=== PATIENT | female | born 1930 | race Caucasian/White ===

== ENCOUNTER → 2016-11-13 | Outpatient (REF) | payer MEDICARE, BC ==
[2016-11-13 17:02] LABS: ANION GAP 9 MEQ/L (8-16); BLOOD UREA NITROGEN 23 MG/DL (7-18); CALCIUM LEVEL 9.3 MG/DL (8.8-10.2); CARBON DIOXIDE LEVEL 27 MEQ/L (21-32); CHLORIDE LEVEL 106 MEQ/L (98-107); CREATININE FOR GFR 0.81 MG/DL (0.55-1.02); GLOMERULAR FILTRATION RATE > 60.0 (>32); GLUCOSE, FASTING 95 MG/DL (83-110); MAGNESIUM LEVEL 2.2 MG/DL (1.8-2.4); POTASSIUM SERUM 3.7 MEQ/L (3.5-5.1); SODIUM LEVEL 142 MEQ/L (136-145)
[2016-11-13 17:28] LABS: MEAN CORPUSCULAR HEMOGLOBIN 30.1 pg (27.0-33.0); WHITE BLOOD COUNT 6.3 K/mm3 (4.0-10.0)
[2016-11-13 18:01] LABS: VITAMIN B12 LEVEL 1457 PG/ML (247-911)
== END ==
LOC: M SFHCPLAZ 14:08
PROVIDERS: ATTEND Family Medicine
DX: I10 Essential (primary) hypertension (principal); E83.42 Hypomagnesemia; E53.8 Deficiency of other specified B group vitamins; Z86.2 Personal history of diseases of the blood and blood-forming organs and certain disorders involving the immune mechanism

== ENCOUNTER → 2016-12-02 | Outpatient (REF) | payer MEDICARE, BC | LOC: M LAB REF 11:29 | PROVIDERS: ATTEND Family Medicine | DX: C44.702 Unspecified malignant neoplasm of skin of right lower limb, including hip (principal); C44.712 Basal cell carcinoma of skin of right lower limb, including hip; L57.0 Actinic keratosis; D04.61 Carcinoma in situ of skin of right upper limb, including shoulder ==

== ENCOUNTER → 2017-03-04 | Outpatient (REF) | payer MEDICARE, BC | LOC: M LAB REF 17:06 | PROVIDERS: ATTEND Surgery | DX: C44.712 Basal cell carcinoma of skin of right lower limb, including hip (principal) ==

== ENCOUNTER → 2017-05-08 | Outpatient (REF) | payer MEDICARE, BC ==
[2017-05-08 18:41] LABS: ANION GAP 7 MEQ/L (8-16); BLOOD UREA NITROGEN 20 MG/DL (7-18); CALCIUM LEVEL 8.7 MG/DL (8.8-10.2); CARBON DIOXIDE LEVEL 29 MEQ/L (21-32); CHLORIDE LEVEL 104 MEQ/L (98-107); CREATININE FOR GFR 0.89 MG/DL (0.55-1.02); FERRITIN 81 NG/ML (8-252); GLOMERULAR FILTRATION RATE > 60.0 (>32); GLUCOSE, FASTING 89 MG/DL (83-110); POTASSIUM SERUM 4.1 MEQ/L (3.5-5.1); SODIUM LEVEL 140 MEQ/L (136-145)
[2017-05-08 18:47] LABS: MEAN CORPUSCULAR HEMOGLOBIN 30.8 pg (27.0-33.0); MEAN CORPUSCULAR HGB CONC 33.2 g/dl (32.0-36.5); MEAN CORPUSCULAR VOLUME 92.8 fl (80.0-96.0); RED CELL DISTRIBUTION WIDTH 13.3 % (11.5-14.5); WHITE BLOOD COUNT 6.4 10^3/uL (4.0-10.0)
== END ==
LOC: M SFHCPLAZ 15:24
PROVIDERS: ATTEND Family Medicine
DX: I10 Essential (primary) hypertension (principal); Z86.39 Personal history of other endocrine, nutritional and metabolic disease
CPT/HCPCS: 36415; 69210; 80048; 82728; 85027; G0463

== ENCOUNTER → 2017-11-28 | Outpatient (REF) | payer MEDICARE, BC ==
[2017-11-28 17:11] LABS: HEMATOCRIT 37.5 % (36.0-47.0); HEMOGLOBIN 12.7 g/dl (12.0-15.5); MEAN CORPUSCULAR HEMOGLOBIN 31.1 pg (27.0-33.0); MEAN CORPUSCULAR HGB CONC 33.9 g/dl (32.0-36.5); MEAN CORPUSCULAR VOLUME 91.9 fl (80.0-96.0); PLATELET COUNT, AUTOMATED 239 10^3/uL (150-450); RED BLOOD COUNT 4.08 10^6/uL (4.00-5.40); RED CELL DISTRIBUTION WIDTH 13.2 % (11.5-14.5); WHITE BLOOD COUNT 6.3 10^3/uL (4.0-10.0)
[2017-11-28 17:47] LABS: ANION GAP 7 MEQ/L (8-16); BLOOD UREA NITROGEN 23 MG/DL (7-18); CARBON DIOXIDE LEVEL 28 MEQ/L (21-32); CHLORIDE LEVEL 107 MEQ/L (98-107); CREATININE FOR GFR 0.81 MG/DL (0.55-1.30); GLOMERULAR FILTRATION RATE > 60.0 (>32); GLUCOSE, FASTING 120 MG/DL (70-100); POTASSIUM SERUM 3.6 MEQ/L (3.5-5.1); SODIUM LEVEL 142 MEQ/L (136-145)
[2017-11-28 17:48] LABS: CALCIUM LEVEL 8.7 MG/DL (8.8-10.2); FERRITIN 96 NG/ML (8-252); IRON (FE) 48 UG/DL (50-170); MAGNESIUM LEVEL 2.1 MG/DL (1.8-2.4); PERCENT SATURATION 17.2 % (13.2-45.0); TOTAL IRON BINDING CAPACITY 279 UG/DL (250-450)
== END ==
LOC: M SFHCPLAZ 15:48
DX: I10 Essential (primary) hypertension (principal); E83.42 Hypomagnesemia; Z86.39 Personal history of other endocrine, nutritional and metabolic disease
CPT/HCPCS: 83550

== ENCOUNTER 2018-03-13 07:29 | Inpatient (IN) | payer MEDICARE, BC ==
[2018-03-13 08:08] LABS: BASO % 0.5 % (0.0-1.0); EOS % 0.2 % (0.0-3.0); HEMATOCRIT 35.3 % (36.0-47.0); HEMOGLOBIN 12.3 g/dl (12.0-15.5); IMMATURE GRANULOCYTE % 0.6 % (0-3.0); LYMPH % 11.8 % (24.0-44.0); MEAN CORPUSCULAR HEMOGLOBIN 31.5 pg (27.0-33.0); MEAN CORPUSCULAR HGB CONC 34.8 g/dl (32.0-36.5); MEAN CORPUSCULAR VOLUME 90.3 fl (80.0-96.0); MONO # 0.5 10^3/uL (0.0-0.8); MONO % 6.1 % (0.0-5.0); NEUTROPHILS # 6.5 10^3/uL (1.8-7.7); NEUTROPHILS % 80.8 % (36.0-66.0); PLATELET COUNT, AUTOMATED 296 10^3/uL (150-450); RED BLOOD COUNT 3.91 10^6/uL (4.00-5.40); RED CELL DISTRIBUTION WIDTH 13.2 % (11.5-14.5)
[2018-03-13] MEDS: ONDANSETRON 4MG/2ML VIAL (J2405) IV (08:11)
[2018-03-13] MEDS: MORPHINE 2 MG/ML 1ML SYRINGE (J2270) IV (08:11)
[2018-03-13 08:26] LABS: INR 1.02; PROTHROMBIN TIME 13.5 SECONDS (12.1-14.4)
[2018-03-13 08:27] LABS: PARTIAL THROMBOPLASTIN TIME 24.4 SECONDS (25.4-37.6)
[2018-03-13 08:43] LABS: ANION GAP 11 MEQ/L (8-16); BLOOD UREA NITROGEN 18 MG/DL (7-18); CALCIUM LEVEL 8.6 MG/DL (8.8-10.2); CARBON DIOXIDE LEVEL 24 MEQ/L (21-32); CHLORIDE LEVEL 103 MEQ/L (98-107); CPK CREATINE PHOSPHOKINASE 148 U/L (26-192); CREATININE FOR GFR 0.83 MG/DL (0.55-1.30); GLOMERULAR FILTRATION RATE > 60.0 (>32); GLUCOSE, FASTING 137 MG/DL (70-100); POTASSIUM SERUM 3.2 MEQ/L (3.5-5.1); SODIUM LEVEL 138 MEQ/L (136-145); TROPONIN I < 0.02 NG/ML (< 0.10)
[2018-03-13 08:44] LABS: CK-MB VALUE MASS 3.1 NG/ML (<3.6); MB/CK RELATIVE INDEX 2.09 (< OR =4)
[2018-03-13] MEDS: NS 1,000 ML IV ×3 (09:15→21:36)
[2018-03-13] MEDS: POTASSIUM CHLORIDE 10 MEQ SR TABLET PO (10:00)
[2018-03-13] MEDS ORDERED: ACETAMINOPHEN TAB 650MG DOSE (2X325MG) PO (11:15)
[2018-03-13] MEDS ORDERED: ONDANSETRON 4MG/2ML VIAL (J2405) IV (11:15)
[2018-03-13] MEDS ORDERED: MORPHINE 4 MG/ML 1ML VIAL/SYRINGE (J2270) IV (11:15)
[2018-03-13] MEDS: PERCOCET 5MG/325MG TAB PO (11:37)
[2018-03-13] MEDS: amLODIPine 5 MG TAB PO (15:57)
[2018-03-14 06:27] LABS: HEMATOCRIT 33.5 % (36.0-47.0); HEMOGLOBIN 11.8 g/dl (12.0-15.5); MEAN CORPUSCULAR HEMOGLOBIN 31.1 pg (27.0-33.0); MEAN CORPUSCULAR HGB CONC 35.2 g/dl (32.0-36.5); MEAN CORPUSCULAR VOLUME 88.2 fl (80.0-96.0); PLATELET COUNT, AUTOMATED 294 10^3/uL (150-450); RED CELL DISTRIBUTION WIDTH 13.1 % (11.5-14.5)
[2018-03-14 06:47] LABS: ANION GAP 11 MEQ/L (8-16); BLOOD UREA NITROGEN 10 MG/DL (7-18); CALCIUM LEVEL 7.8 MG/DL (8.8-10.2); CARBON DIOXIDE LEVEL 24 MEQ/L (21-32); CHLORIDE LEVEL 104 MEQ/L (98-107); CREATININE FOR GFR 0.47 MG/DL (0.55-1.30); GLOMERULAR FILTRATION RATE > 60.0 (>32); GLUCOSE, FASTING 121 MG/DL (70-100); POTASSIUM SERUM 3.1 MEQ/L (3.5-5.1); SODIUM LEVEL 139 MEQ/L (136-145)
[2018-03-14] MEDS ORDERED: fentaNYL 100 MCG/2 ML INJECTION (J3010) As Ordered (07:53)
[2018-03-14] MEDS ORDERED: LIDOCAINE 2% INJ 100 MG/5 ML SDV (FOR ANES.) As Ordered (07:53)
[2018-03-14] MEDS ORDERED: PROPOFOL 200 MG/20 ML VIAL As Ordered (07:53)
[2018-03-14] MEDS ORDERED: MIDAZOLAM INJ 2 MG/2 ML VIAL (J2250) As Ordered (07:54)
[2018-03-14] MEDS: POTASSIUM CHLORIDE 10 MEQ SR TABLET PO ×2 (08:00→14:51)
[2018-03-14] MEDS: amLODIPine 5 MG TAB PO (09:00)
[2018-03-14] MEDS ORDERED: amLODIPine 5 MG TAB PO (09:00)
[2018-03-14] MEDS ORDERED: ePHEDrine SULFATE 25 MG/5 ML(5MG/ML) SYRINGE As Ordered (09:03)
[2018-03-14] MEDS ORDERED: PHENYLephrine HCL 500 MCG/5 ML (100MCG/ML) SYRINGE (J2370) As Ordered ×3 (09:03→10:04)
[2018-03-14] MEDS ORDERED: PHENYLEPHRINE INJ 10MG/ML VIAL (J2370) As Ordered ×5 (09:56→10:05)
[2018-03-14] MEDS: EPINEPHrine INJ 1 MG/ML 1ML AMP XX (10:01)
[2018-03-14] MEDS ORDERED: HYDROMORPHONE HCL 0.5 MG/ 0.5 ML SYRINGE (J1170 PER 1) IV (12:00)
[2018-03-14] MEDS ORDERED: MORPHINE 4 MG/ML 1ML VIAL/SYRINGE (J2270) IV (12:00)
[2018-03-14] MEDS: LR 1,000 ML IV ×2 (12:00→14:52)
[2018-03-14] MEDS ORDERED: fentaNYL 100 MCG/2 ML INJECTION (J3010) IV (12:00)
[2018-03-14] MEDS ORDERED: ONDANSETRON 4MG/2ML VIAL (J2405) As Ordered (12:14)
[2018-03-14] MEDS ORDERED: PERCOCET 5MG/325MG TAB As Ordered (12:14)
[2018-03-14] MEDS ORDERED: FLEET ENEMA PR (12:15)
[2018-03-14] MEDS: PERCOCET 5MG/325MG TAB PO (12:15)
[2018-03-14] MEDS ORDERED: ACETAMINOPHEN TAB 650MG DOSE (2X325MG) PO (12:15)
[2018-03-14] MEDS: ONDANSETRON 4MG/2ML VIAL (J2405) IV (12:16)
[2018-03-14] MEDS: traMADol 50 MG TAB PO (21:20)
[2018-03-15] MEDS: LR 1,000 ML IV ×2 (00:45→08:52)
[2018-03-15 06:31] LABS: HEMATOCRIT 35.8 % (36.0-47.0); MEAN CORPUSCULAR HEMOGLOBIN 30.8 pg (27.0-33.0); MEAN CORPUSCULAR HGB CONC 33.5 g/dl (32.0-36.5); MEAN CORPUSCULAR VOLUME 91.8 fl (80.0-96.0); PLATELET COUNT, AUTOMATED 266 10^3/uL (150-450); RED CELL DISTRIBUTION WIDTH 13.4 % (11.5-14.5); WHITE BLOOD COUNT 10.5 10^3/uL (4.0-10.0)
[2018-03-15 06:57] LABS: ANION GAP 9 MEQ/L (8-16); BLOOD UREA NITROGEN 16 MG/DL (7-18); CALCIUM LEVEL 8.2 MG/DL (8.8-10.2); CARBON DIOXIDE LEVEL 24 MEQ/L (21-32); CHLORIDE LEVEL 104 MEQ/L (98-107); CREATININE FOR GFR 0.63 MG/DL (0.55-1.30); GLOMERULAR FILTRATION RATE > 60.0 (>32); GLUCOSE, FASTING 126 MG/DL (70-100); POTASSIUM SERUM 3.3 MEQ/L (3.5-5.1); SODIUM LEVEL 137 MEQ/L (136-145)
[2018-03-15] MEDS: amLODIPine 5 MG TAB PO (08:46)
[2018-03-15] MEDS: traMADol 50 MG TAB PO (08:47)
[2018-03-15] MEDS: SENOKOT S TAB PO ×2 (08:47→21:00)
[2018-03-15] MEDS: MOM 30ML SUSPENSION UDC PO (08:47)
[2018-03-15] MEDS: MIRALAX *UNIT DOSE* 17GM PACKET PO (08:47)
[2018-03-15] MEDS: POTASSIUM CHLORIDE 10 MEQ SR TABLET PO (08:52)
[2018-03-15] MEDS: RIVAROXABAN 10 MG TAB (XARELTO) PO (17:31)
[2018-03-16] MEDS: LR 1,000 ML IV ×2 (01:45→14:15)
[2018-03-16 08:44] LABS: HEMATOCRIT 32.2 % (36.0-47.0); MEAN CORPUSCULAR HEMOGLOBIN 31.3 pg (27.0-33.0); MEAN CORPUSCULAR HGB CONC 34.2 g/dl (32.0-36.5); MEAN CORPUSCULAR VOLUME 91.5 fl (80.0-96.0); PLATELET COUNT, AUTOMATED 265 10^3/uL (150-450); RED BLOOD COUNT 3.52 10^6/uL (4.00-5.40); RED CELL DISTRIBUTION WIDTH 13.3 % (11.5-14.5); WHITE BLOOD COUNT 9.9 10^3/uL (4.0-10.0)
[2018-03-16] MEDS: MOM 30ML SUSPENSION UDC PO (08:45)
[2018-03-16] MEDS: SENOKOT S TAB PO ×2 (08:45→20:44)
[2018-03-16] MEDS: MIRALAX *UNIT DOSE* 17GM PACKET PO (08:46)
[2018-03-16 09:25] LABS: ANION GAP 7 MEQ/L (8-16); BLOOD UREA NITROGEN 16 MG/DL (7-18); CALCIUM LEVEL 7.8 MG/DL (8.8-10.2); CARBON DIOXIDE LEVEL 27 MEQ/L (21-32); CHLORIDE LEVEL 102 MEQ/L (98-107); CREATININE FOR GFR 0.58 MG/DL (0.55-1.30); GLOMERULAR FILTRATION RATE > 60.0 (>32); GLUCOSE, FASTING 185 MG/DL (70-100); SODIUM LEVEL 136 MEQ/L (136-145)
[2018-03-16] MEDS: RIVAROXABAN 10 MG TAB (XARELTO) PO (16:59)
[2018-03-17] MEDS: MOM 30ML SUSPENSION UDC PO (09:37)
[2018-03-17] MEDS: MIRALAX *UNIT DOSE* 17GM PACKET PO (09:37)
[2018-03-17] MEDS: SENOKOT S TAB PO (09:37)
== END 2018-03-17 11:00 | DRG 470 ==
LOC: M ED 07:29 → M ED INP 11:14 → M MS5PR 13:25
PROC: 0SRR019 Replacement of Right Hip Joint, Femoral Surface with Metal Synthetic Substitute, Cemented, Open Approach (ICD-10-PCS; principal; 2018-03-14 08:35)
DX: S72.041A Displaced fracture of base of neck of right femur, initial encounter for closed fracture (principal); I10 Essential (primary) hypertension; M48.00 Spinal stenosis, site unspecified; X50.9XXA Other and unspecified overexertion or strenuous movements or postures, initial encounter; Y92.009 Unspecified place in unspecified non-institutional (private) residence as the place of occurrence of the external cause; Y99.8 Other external cause status; Z79.82 Long term (current) use of aspirin; Z79.899 Other long term (current) drug therapy

== ENCOUNTER → 2018-03-26 | Outpatient (REF) ==
[2018-03-26 17:53] LABS: HEMOGLOBIN 10.4 g/dl (12.0-15.5); MEAN CORPUSCULAR HEMOGLOBIN 30.2 pg (27.0-33.0); MEAN CORPUSCULAR HGB CONC 33.5 g/dl (32.0-36.5); MEAN CORPUSCULAR VOLUME 90.1 fl (80.0-96.0); PLATELET COUNT, AUTOMATED 580 10^3/uL (150-450); RED BLOOD COUNT 3.44 10^6/uL (4.00-5.40); RED CELL DISTRIBUTION WIDTH 13.9 % (11.5-14.5); WHITE BLOOD COUNT 14.2 10^3/uL (4.0-10.0)
[2018-03-26 18:03] LABS: ANION GAP 11 MEQ/L (8-16); BLOOD UREA NITROGEN 24 MG/DL (7-18); CALCIUM LEVEL 8.5 MG/DL (8.8-10.2); CARBON DIOXIDE LEVEL 26 MEQ/L (21-32); CHLORIDE LEVEL 98 MEQ/L (98-107); CREATININE FOR GFR 0.72 MG/DL (0.55-1.30); GLOMERULAR FILTRATION RATE > 60.0 (>32); GLUCOSE, FASTING 107 MG/DL (70-100); POTASSIUM SERUM 5.1 MEQ/L (3.5-5.1); SODIUM LEVEL 135 MEQ/L (136-145)
== END ==
DX: I10 Essential (primary) hypertension (principal)

== ENCOUNTER → 2018-06-30 | Outpatient (REF) | payer MEDICARE, BC | LOC: M SFHCPLAZ 11:38 | DX: C44.622 Squamous cell carcinoma of skin of right upper limb, including shoulder (principal) | CPT/HCPCS: 88305 ==

== ENCOUNTER → 2018-11-18 | Outpatient (REF) | payer MEDICARE, BC ==
[~2018-11-18] MED LIST: ASPI81TA26 PO; B-1210009 PO; CALC500T49 PO; EXCETAB81 PO; LATA0.0013 OU; MAGN64TASA PO; MULT1TAB10 PO; OPTI0.5D5 OU; POTA1TAB14 PO; POTA99TA PO; SIMB1SUS OU; TRAM50TA2 PO; TRIA37.5 PO; VITA100T51 PO; VITA500T PO; VITATAB11 PO; VITMTA PO; XARE10TA PO
[2018-11-18 16:25] LABS: BLOOD UREA NITROGEN 26 MG/DL (7-18); CALCIUM LEVEL 9.1 MG/DL (8.8-10.2); CARBON DIOXIDE LEVEL 29 MEQ/L (21-32); CHLORIDE LEVEL 107 MEQ/L (98-107); CREATININE FOR GFR 0.75 MG/DL (0.55-1.30); GLOMERULAR FILTRATION RATE > 60.0 (>32); GLUCOSE, FASTING 92 MG/DL (70-100); POTASSIUM SERUM 4.2 MEQ/L (3.5-5.1); SODIUM LEVEL 142 MEQ/L (136-145)
[2018-11-18 16:37] LABS: VITAMIN B12 LEVEL 922 PG/ML (247-911)
[2018-11-18 16:41] LABS: AMORPHOUS SEDIMENT SMALL (NEGATIVE); APPEARANCE, URINE TURBID (CLEAR); BACTERIA, URINE AUTO NEGATIVE (NEGATIVE); BILIRUBIN, URINE AUTO NEGATIVE (NEGATIVE); BLOOD, URINE BLOOD NEGATIVE (NEGATIVE); COLOR, URINE YELLOW (YELLOW); GLUCOSE, URINE (UA) AUTO NEGATIVE (NEGATIVE); KETONE, URINE AUTO NEGATIVE (NEGATIVE); LEUKOCYTE ESTERASE, URINE AUTO NEGATIVE (NEGATIVE); NITRITE, URINE AUTO NEGATIVE (NEGATIVE); PROTEIN, URINE AUTO NEGATIVE (NEGATIVE); RBC, URINE AUTO 1 /HPF (0-3); SPECIFIC GRAVITY URINE AUTO 1.013 (1.002-1.035); SQUAMOUS EPITHELIAL CELL UR AU 0 /HPF (0-6); UROBILINOGEN, URINE AUTO 0.2 mg/dL (0.0-2.0); WBC, URINE AUTO 2 /HPF (0-3)
[2018-11-18 16:49] LABS: HEMOGLOBIN A1c 5.7 %
== END ==
LOC: M SFHCPLAZ 12:42
PROVIDERS: ATTEND Family Medicine
DX: R73.03 Prediabetes (principal); I10 Essential (primary) hypertension; E83.42 Hypomagnesemia; R35.0 Frequency of micturition; E53.8 Deficiency of other specified B group vitamins

== ENCOUNTER → 2019-01-19 | Outpatient (REF) | payer MEDICARE, BC ==
[2019-01-19 16:34] LABS: BLOOD UREA NITROGEN 21 MG/DL (7-18); CALCIUM LEVEL 8.9 MG/DL (8.8-10.2); CARBON DIOXIDE LEVEL 29 MEQ/L (21-32); CHLORIDE LEVEL 106 MEQ/L (98-107); CREATININE FOR GFR 0.81 MG/DL (0.55-1.30); GLOMERULAR FILTRATION RATE > 60.0 (>32); GLUCOSE, FASTING 90 MG/DL (70-100); POTASSIUM SERUM 3.8 MEQ/L (3.5-5.1); SODIUM LEVEL 141 MEQ/L (136-145)
== END ==
LOC: M SFHCPLAZ 14:54
PROVIDERS: ATTEND Family Medicine
DX: I10 Essential (primary) hypertension (principal); E83.42 Hypomagnesemia
CPT/HCPCS: 36415; 80048; 83735; G0463

== ENCOUNTER → 2019-03-26 | Outpatient (REF) | payer MEDICARE, BC ==
[2019-03-26 16:47] LABS: BLOOD UREA NITROGEN 25 MG/DL (7-18); CALCIUM LEVEL 9.7 MG/DL (8.8-10.2); CARBON DIOXIDE LEVEL 31 MEQ/L (21-32); CHLORIDE LEVEL 108 MEQ/L (98-107); CREATININE FOR GFR 0.77 MG/DL (0.55-1.30); GLOMERULAR FILTRATION RATE > 60.0 (>32); GLUCOSE, FASTING 79 MG/DL (70-100); MAGNESIUM LEVEL 2.1 MG/DL (1.8-2.4); POTASSIUM SERUM 4.1 MEQ/L (3.5-5.1); SODIUM LEVEL 142 MEQ/L (136-145)
== END ==
LOC: M SFHCPLAZ 13:31
PROVIDERS: ATTEND Family Medicine
DX: I10 Essential (primary) hypertension (principal)
CPT/HCPCS: 36415; 80048; 83735; G0463

== ENCOUNTER → 2019-04-16 | Outpatient (CLI) | payer MEDICARE, BC ==
--- NOTE | 2019-04-30 01:03 | ECWPNPC ---
PATIENT NAME: DENO WISE : 1930 GENDER: FEMALE VISIT DATE: 04/16/2019 DISCHARGE DATE: 04/16/19 1635 VISIT LOCKED DATE TIME: PHYSICIAN: TRINH SHEEHAN MD RESOURCE: TRINH SHEEHAN MD REASON FOR APPOINTMENT 1. LOW BACK HISTORY OF PRESENT ILLNESS NEW PATIENT CONSULT: WHEN DID YOUR PAIN FIRST START? . BRIEFLY DESCRIBE HOW YOUR PAIN STARTED? . HOW DOES YOUR PAIN CHANGE WITH TIME? . DOES YOUR PAIN AWAKEN YOU FROM SLEEP? . HOW MANY HOURS OF SLEEP DO YOU NORMALLY GET? . ANY DIAGNOSTIC TESTING? . FACILITY WHERE TESTS WERE DONE? ____. PAIN TREATMENT TREATMENT YES CANCER HAVE YOU EVER HAD ANY TYPE OF CANCER?NO NO. 88 YEAR OLD FEMALE PATIENT WITH A HISTORY OF CHRONIC LOW BACK AND LEG PAIN. THE PATIENT DESCRIBES THE PAIN ACHING, SORE, AND DAILY WITH A PAIN SCORE OF 4-8/10 DEPENDING ON PHYSICAL ACTIVITY. THE PATIENT SATES HER PAIN BEGINS IN HER LOW BACK AND RADIATES DOWN BOTH LEGS, BUT HER RIGHT LEG IS AFFECTED MORE THAN THE LEFT LEG. THE PATIENT SAYS HER PAIN SPONTANEOUSLY STARTED SEVERAL YEARS AGO. THE PATIENT SAYS AT FIRST SHE RELIED ON A CANE TO WALK, BUT SHE FEELS MORE COMFORTABLE USING A WALKER NOW. THE PATIENT SAYS HER PAIN IS AFFECTING HER ABILITY TO PERFORM HER DAILY ACTIVITIES SUCH GROCERY SHOPPING, WALKING, AND CLEANING HER HOUSE. THE PATIENT SAYS SHE NEEDS TO TAKE BREAKS AFTER WALKING FOR A PERIOD OF TIME, DUE TO HER LEGS FEELING TIRED. PATIENT DENIES UNEXPLAINABLE WEIGHT LOSS, FEVER, CHILLS, NEW CHANGES ON HER URINARY OR BOWEL CONTROL. PAIN SCREENING: PATIENT HAS A COMPLAINT OF ACUTE OR CHRONIC PAIN :YES FALL RISK SCREENING: SCREENING : NO FALLS IN THE PAST YEAR. RAMESH INVENTORY: QUESTIONNAIRE ASSESSEDTBD SCORE VALUE CALCULATED TBD CURRENT MEDICATIONS TAKING EXCEDRIN MIGRAINE 250-250-65 MG TABLET 2 TABLETS NEEDED ORALLY EVERY 6 HRS TAKING MULTI FOR HER 50+ - TABLET ORALLY TAKING CALCIUM _ 1 TAB ORAL DAILY, NOTES: OTC TAKING ROLLING WALKER 1 1 DIRECTED WITH SEAT ICD10# R26.89 TAKING MAGNESIUM 65 MG TABLET 1 TABLET ORALLY ONCE A DAY TAKING BREEZE 2 BLOOD GLUCOSE SYSTEM - DEVICE TAKING BLOOD GLUCOSE TEST - STRIP 1 STRIP _ DAILY IN THE MORNING BEFORE FIRST MEAL DX:E11.9 TAKING BD ULTRA-FINE LANCETS - MISCELLANEOUS DIRECTED INTRADERMALLY TWICE DAILY TAKING SIMBRINZA 1-0.2 % SUSPENSION INSTILL 1 DROP IN EACH EYE TWO TIMES A DAY OPHTHALMIC TAKING POTASSIUM _ 1 TAB ORALLY DAILY MEDICATION LIST REVIEWED AND RECONCILED WITH THE PATIENT PAST MEDICAL HISTORY HYPERTENSION HISTORY OF IRON DEFICIENCY SPINAL STENOSIS WITH ASSOCIATED LEG PAIN H/O JACOBO'S PALSY HISTORY OF 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 BCC EXCISED RIGHT LATERAL THIGH, 05/2011 HARD OF HEARING ALLERGIES N.K.D.A. SURGICAL HISTORY COLONOSCOPY 2012 DISPLACED HEAD OF RIGHT FEMAR 04/2018 FAMILY HISTORY FATHER: 88 YRS, CAUSE OF UNKNOWN MOTHER: , 1945 - STOMACH AND BREAST CANCER SIBLINGS: , 2011 MYELODYSPLASTIC SYNDROME 1 BROTHER(S) . SOCIAL HISTORY GENERAL: TOBACCO USE ARE YOU A:NONSMOKER OTHERS AT HOME: NONE. HOUSING: RENTS APARTMENT. EDUCATION LEVEL OF EDUCATION:HIGH SCHOOL DIET: REGULAR. LANGUAGE LANGUAGES SPOKEN:TUNISIAN DOMESTIC VIOLENCE DO YOU FEEL SAFE IN YOUR ENVIRONMENT?YES RECREATIONAL DRUG USE DRUG USE?NO EXERCISE: WALKS TWICE A WEEK. LEARNING BARRIERS / SPECIAL NEEDS BARRIERS TO LEARNING?NO HEARING IMPAIRED?YES COGNITIVELY IMPAIRED?NO READINESS TO LEARN?YES LEARNING PREFERENCES?NO LEARNING CAPABILITIES PRESENT?YES EMOTIONAL BARRIERS?NO SPECIAL DEVICES?NO ADMINISTRATIVE LIAISON NEEDED?NO PAIN CLINIC PFS, CLERGY, PUBLIC HEALTH REFERRALS CLERGY REFERRAL NEEDED?NO WAS THE PROVIDER NOTIFIED OF ANY PERTINENT INFO?NO PFS REFERRAL NEEDED?NO PUBLIC HEALTH REFERRAL NEEDED?NO LATEX QUESTIONNAIRE LATEX ALLERGY : HAVE YOU EVER DEVELOPED ANY TYPE OF REACTION AFTER HANDLING LATEX PRODUCTS SUCH RUBBER GLOVES, CONDOMS, DIAPHRAGMS, BALLOONS, SOCKS, OR UNDERWEAR?NO LATEX ALLERGY : HAVE YOU EVER DEVELOPED ANY TYPE OF REACTION DURING OR AFTER DENTAL APPOINTMENT, VAGINAL/RECTAL EXAMINATION, SURGICAL PROCEDURE, OR ANY OTHER EXPOSURE?NO LATEX RISK : HAVE YOU EVER HAD ANY DIFFICULTY BREATHING OR HIVES AFTER EATING OR HANDLING ANY FRUITS, OR VEGETABLES; SUCH KIWI, BANANAS, STONE FRUITS, OR CHESTNUTSNO LATEX RISK : DO YOU HAVE A PREVIOUS PERSONAL HISTORY OF MORE THAN NINE SURGERIES, SPINA BIFIDA, OR REPEATED CATHERIZATIONS? NO LATEX RISK : ARE YOU FREQUENTLY EXPOSED TO LATEX PRODUCTS IN YOUR OCCUPATION?NO DATE ASKED : 04/16/2019 CAFFEINE: YES CAFFEINE USE? 4 CUPS PER WEEK [employer] [id number] [employer] STATUS: . ALCOHOL SCREENING DID YOU HAVE A DRINK CONTAINING ALCOHOL IN THE PAST YEAR?NO POINTS0 INTERPRETATIONNEGATIVE OCCUPATION: RETIRED. HOSPITALIZATION/MAJOR DIAGNOSTIC PROCEDURE [facility] 04/2018 REVIEW OF SYSTEMS REVIEWED BY: PROVIDER: TRINH SHEEHAN MD . CONSTITUTIONAL: ANY CHANGE IN YOUR MEDICAL CONDITION? YES - LEG PAIN . CHILLS NO . FEVER NO . INFECTION: DO YOU HAVE NEW INFECTIONS? NO . DO YOU HAVE HISTORY OF MRSA? NO . MUSCULOSKELETAL: ANY NEW PATTERNS OF PAIN OR NUMBNESS? YES - RADIATES DOWN HIP/LOW BACK DOWN TO FEET . SYTEMIC LUPUS NO . GASTROENTEROLOGY: ANY NEW CHANGE IN BOWEL CONTROL? NO . BARRETTS ESOPHAGUS NO . CIRRHOSIS NO . HEPATITIS NO . LIVER FAILURE NO . ACID REFLUX NO . UNEXPLAINED WEIGHT LOSS NO . GENITOURINARY: ANY NEW CHANGE IN BLADDER CONTROL? NO . IS THERE A CHANCE YOU COULD BE ? NO . HEMATOLOGY/LYMPH: DO YOU TAKE ANY BLOOD THINNERS? (FOR EXAMPLE- COUMADIN, PLAVIX, AGGRENOX, PLATEL, PRADAXA, OR XARELTO) NO . WHEN WAS YOUR LAST DOSE? DATE: TIME: . LOW PLATELET COUNT NO . SICKLE CELL DISEASE NO . VON WILLIEBRANDS NO . FACTOR V LEIDEN NO . THALLASEMIA NO . ANEMIA NO . EASY BRUISING NO . NEUROLOGY: HAVE YOU FALLEN IN THE PAST 12 MONTHS? LAST FALL . ANY NEW EXTREMITY NUMBNESS OR WEAKNESS? NO . HEAD INJURY NO . DEMENTIA NO . CEREBRAL PALSY NO . MULTIPLE SCLEROSIS NO . DIZZINESS NO . HEADACHE NO . STROKES NO . VERTIGO NO . CARDIOLOGY: DO YOU HAVE A PACEMAKER OR DEFIBRILLATOR? NO . ANGINA NO . HEART ATTACK NO . HEART SURGERY NO . CONGESTIVE HEART FAILURE/FLUID OVERLOAD NO . CHEST PAIN NO . HIGH BLOOD PRESSURE NO . IRREGULAR HEART BEAT NO . RESPIRATORY: HAVE YOU BEEN SICK IN THE PAST WEEK? NO . FEVER NO . FLU LIKE SYMPTOMS? NO . CPAP NO . BYPAP NO . ASTHMA NO . EMPHYSEMA NO . CHRONIC LUNG DISEASES NO . SHORTNESS OF BREATH ON EXERTION NO . DO YOU USE ANY TYPE OF TOBACCO (SMOKE, SMOKELESS, CHEW)? NO . COUGH NO . SNORING NO . INTEGUMENTARY: DO YOU HAVE ANY RASHES OR OPEN SORES? NO . ALLERGIC/IMMUNO: ARE YOU ALLERGIC TO IV DYE? NO . ANY NEW ALLERGIES? NO . PSYCHIATRIC: DO YOU HAVE THOUGHTS OF HURTING YOURSELF OR SOMEONE ELSE? NO . ARE YOU ABUSED, NEGLECTED, OR IN AN UNSAFE ENVIRONMENT? NO . ENDOCRINOLOGY: ARE YOU DIABETIC? YES - DIET-CONTROLLED . THYROID DISORDER NO . OTHER: DO YOU NEED ANY PRESCRIPTIONS? UNSURE - WHAT IS/WOULD PAPAVERINE HELP? . IF YES, PLEASE LIST: ____ . ANY NEW PROBLEMS WITH YOUR MEDICATIONS? NO . WHEN DID YOU LAST EAT? ____ . WHEN DID YOU LAST DRINK? ____ . WHAT DID YOU LAST DRINK? ____ . NAME OF PERSON DRIVING YOU HOME? ____ . DO YOU HAVE ANY OTHER QUESTIONS OR CONCERNS YES - WHAT CAN BE DONE FOR CHRONIC LEG PAIN? . VITAL SIGNS WT 103.8 LBS, HT 59 IN, BMI 20.96 INDEX, BP 137/89 MM HG, HR 76 /MIN, RR 16 /MIN, TEMP 98.2 F, OXYGEN SAT % 96%, NA INITIALS SC 14:15, REVIEWED BY: TAWNYA. EXAMINATION GENERAL EXAMINATION: PATIENT IS ALERT O X 3 AND COOPERATIVE. LUNGS CLEAR, TO AUSCULTATION. HEART: NO MURMURS OR GALLOPS; FACIAL CRANIAL NERVES ARE GROSSLY NORMAL. GOOD SYMMETRY OF FACIAL MUSCLE MOVEMENT. NORMAL VISUAL [place]. ANTALGIC WALK. PATIENT IS USING A WALKER TO AMBULATE. MILD TENDERNESS IN THE LOW BACK OVER THE SACROILIAC JOINT. RIGHT LEG IS WEAKER AT EXTENSION AND FLEXION. STRAIGHT LEG RAISE OF THE RIGHT LEG IS POSITIVE AT 50 DEGREES FOR RADICULOPATHY. MRI OF LUMBAR SPINE DONE ON 12/25/2018 SHOWS SEVERE SPINAL STENOSIS, BULGING DISC, AND FACET ARTHROPATHY CHANGES AT MULTIPLE LEVELS. 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 WISE'S PAIN MANAGEMENT CASE. I DISCUSSED WITH THE PATIENT SEVERAL INJECTION THERAPY OPTIONS, AND I MAY CONSIDER DOING A LUMBAR EPIDURAL IN THE FUTURE. I WILL START THE PATIENT ON CELEBREX 100 MG UP TO 1 CAPSULE DAILY, 30 FOR THE MONTH, NEEDED FOR PAIN. I EXPLAINED TO THE PATIENT THE RISKS ALTERNATIVES AND BENEFITS ASSOCIATED WITH THE USE OF NSAID'S. THE PATIENT UNDERSTOOD THAT THE USE OF NSAID'S MAY BE ASSOCIATED WITH THE DEVELOPMENT OF GASTRIC IRRITATION AND ULCERS, WITH THE DEVELOPMENT OF KIDNEY PROBLEMS AND WITH THE POSSIBILITY OF DEVELOPING CARDIAC EVENTS SUCH STOKE OR CARDIAC DISEASES. I ADVISED THE PATIENT TO TRY NOT TAKE THE CELEBREX EVERY DAY AND THE PATIENT UNDERSTANDS AND AGREES. THE PATIENT WILL FOLLOW UP WITH THE NURSE PRACTITIONER IN 6 WEEKS. INSTRUCTIONS WERE GIVEN, QUESTIONS WERE ANSWERED, PATIENT REPORTS UNDERSTANDING AND AGREES WITH THE PLAN. I, MARY DAVIS, DOCUMENTED THE ABOVE INFORMATION ACTING A SCRIBE FOR DR. SHEEHAN. I HAVE REVIEWED THE ABOVE DOCUMENT, WRITTEN BY MARY GAVIRIAIBTrent AND I VERIFY THAT IT IS ACCURATE. DEAR ADAL ELMORE MD: THANK YOU FOR YOUR KIND REFERRAL OF DEON WISE. IF YOU WANT TO DISCUSS HER CASE WITH ME PLEASE CALL ME AT THE PAIN CENTER AT [phone]. SINCERELY, TRINH SHEEHAN MD PAIN MEDICINE . OTHERS START CELECOXIB CAPSULE, 100 MG, 1 CAPSULE WITH FOOD, ORALLY FOR PAIN, ONCE A DAY, 30 DAY(S), 30, REFILLS 1 PREVENTIVE MEDICINE PAIN CLINIC TEACHING: MEDICATIONS CELEBREX HANDOUT PRINTED, REVIEWED AND GIVEN TO PT. EM. PROCEDURE CODES FA211 ESTABILISHED PATIENT [facility] FACILITY CHARGE [id number] CURRENT MEDS W/DOSAGES DOCUMENTED [id number] PAIN ASSESS POS TOOL F/U PLAN DOC DISPOSITION & COMMUNICATION FOLLOW UP 6 WEEKS (REASON: F/U W/ SPECTROGRAPHIC ANALYST) ELECTRONICALLY SIGNED BY TRINH SHEEHAN MD, MD ON 04/29/2019 AT 05:48 PM EDT DISCLAIMER : THIS IS A VISIT SUMMARY EXTRACTED FROM THE [employer] CHART. IT IS NOT A COPY OF THE [employer] PROGRESS NOTE. YANIV
== END ==
LOC: M PAIN 14:00
PROVIDERS: ATTEND Anesthesiology
DX: M48.061 Spinal stenosis, lumbar region without neurogenic claudication (principal); M51.16 Intervertebral disc disorders with radiculopathy, lumbar region; M47.816 Spondylosis without myelopathy or radiculopathy, lumbar region; M46.1 Sacroiliitis, not elsewhere classified; M53.3 Sacrococcygeal disorders, not elsewhere classified; I10 Essential (primary) hypertension; E53.8 Deficiency of other specified B group vitamins; R73.01 Impaired fasting glucose; Z85.828 Personal history of other malignant neoplasm of skin; H91.93 Unspecified hearing loss, bilateral; Z79.899 Other long term (current) drug therapy